=== PATIENT | male | born 1965 | race Caucasian/White ===

== ENCOUNTER → 2019-08-18 08:43 | Outpatient (CLI) | payer OTHER, SELFPAY ==
[2019-08-18 10:30] LABS: Vitamin D,25 Hydroxy 13.7 ng/mL (29.95-100.01)
[2019-08-18 10:48] LABS: Anion Gap 7 (5-15); BUN 12 mg/dL (7-18); BUN/Creat Ratio 10.2 RATIO (10-20); Chloride 106 mmol/L (98-107); Cholesterol 134 mg/dL (200); Creatinine, Serum 1.18 mg/dL (0.70-1.30); EST Glomerular Filtration Rate 69 mL/min (>60); Est Glom Filt Rate - Afr Amer 83 mL/min (>60); Glucose 98 mg/dL (74-106); High Density Lipoprotein 51 mg/dL; PSA,Total - Annual Screen 0.56 ng/mL (0.00-4.00); Potassium 4.1 mmol/L (3.5-5.1); Sodium Level 138 mmol/L (136-145); Thyroid Stim Hormone (TSH) 2.77 uIU/mL (0.358-3.74); Triglycerides 93 mg/dL; Very Low Density Lipoprotein 19 mg/dL (5-40)
== END ==
PROVIDERS: Visit Provider Family Medicine
DX: Z00.00 Encounter for general adult medical examination without abnormal findings (principal)
CPT/HCPCS: 36415; 80048; 80061; 82306; 84153; 84443; G0103

== ENCOUNTER → 2020-08-03 15:46 | Outpatient (CLI) | payer OTHER, SELFPAY | PROVIDERS: PCP Registered Nurse; Referring Provider Registered Nurse; Visit Provider Registered Nurse | DX: Z20.828 Contact with and (suspected) exposure to other viral communicable diseases (principal) | CPT/HCPCS: 87635; U0003 ==

== ENCOUNTER 2021-04-05 18:46 | Emergency (ER) | payer OTHER, SELFPAY ==
[2021-04-05 18:48] VITALS: BP 170/109; PULSE 85; RESP 16; TEMP 36.6; O2SAT 96; BMI 39.4
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
[2021-04-05] MEDS: traMADol 50 MG Tablet PO (20:53)
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
[2021-04-05] MEDS: Lidocaine 1% /Epi 1:100 (20ml) 20 ML Vial INFILT (23:51)
[2021-04-05 23:52] VITALS: BP 154/71; PULSE 78; RESP 16; O2SAT 98
== END 2021-04-05 23:53 | disposition home or self-care (01) ==
PROVIDERS: Emergency Provider Emergency Medicine; PCP Family Medicine
DX: S01.512A Laceration without foreign body of oral cavity, initial encounter (principal); S09.90XA Unspecified injury of head, initial encounter; X58.XXXA Exposure to other specified factors, initial encounter
CPT/HCPCS: 12013; 70100; 73140; 99283

== ENCOUNTER 2021-06-23 07:26 | Emergency (ER) | payer OTHER, SELFPAY ==
[2021-06-23 07:27] VITALS: BP 195/132; PULSE 75; RESP 18; TEMP 36.1; O2SAT 96; BMI 40.4
--- NOTE | 2021-06-23 07:29 | CT_ITS ---
EXAM: CT CERVICAL SPINE WITHOUT INTRAVENOUS CONTRAST : 1965 CLINICAL INDICATION: Trauma TECHNIQUE: Helically acquired images were obtained of the cervical spine without intravenous contrast. 2D reformatted images were reviewed. This CT exam was performed using one or more of the following dose reduction techniques: automated exposure control, adjustment of the mA and/or kV according to patient size, and/or use of iterative reconstruction technique. This report was created using [employer] report generation technology. COMPARISON: None. FINDINGS: VERTEBRAE: Mild anterior listhesis of C4 on C5 which appears related to the spondylosis. No fracture. No discrete lytic or blastic abnormality. Normal craniocervical junction and cervicothoracic junction. DISCS/SPINAL CANAL/NEURAL FORAMINA: Disc space narrowing and vertebral body spurring noted at C5-6 and C6-7. Multilevel facet arthropathy. Neural foraminal narrowing noted bilaterally at C5-6 and C6-7. SOFT TISSUES: Unremarkable. No prevertebral soft tissue swelling. LYMPH NODES: Unremarkable. No cervical adenopathy. LUNG APICES: Unremarkable as visualized. Clear. CT/Spine Cervical without Contras IMPRESSION: 1. No acute fracture or subluxation. 2. C5-6 and C6-7 spondylosis. Individualized dose optimization techniques were used for this CT. at 0813 Reported and signed by: Medhat Villa MD Electronically Signed: Medhat Villa MD at 8:12 EDT Tel , Service support ,
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
--- NOTE | 2021-06-23 07:42 | CT_ITS ---
EXAM: CT HEAD WITHOUT INTRAVENOUS CONTRAST : 1965 CLINICAL INDICATION: Trauma TECHNIQUE: Multiple axial images were obtained of the head without intravenous contrast. This CT exam was performed using one or more of the following dose reduction techniques: automated exposure control, adjustment of the mA and/or kV according to patient size, and/or use of iterative reconstruction technique. This report was created using [employer] report generation technology. COMPARISON: None. FINDINGS: BRAIN AND EXTRA-AXIAL SPACES: Unremarkable. No intra- or extra-axial hemorrhage. No evidence of acute infarct. No intracranial mass or mass effect. There is preservation of the pinedo/white matter interface. Posterior fossa structures are unremarkable. Ventricles are appropriate for age. No hydrocephalus. Basal cisterns are patent. BONES/JOINTS: Unremarkable. No discrete lytic or blastic abnormalities. SINUSES: Unremarkable as visualized. Clear. MASTOID AIR CELLS: Unremarkable. Clear. ORBITS: Visualized globes, extraocular muscles, optic nerves and retrobulbar fat appear unremarkable. CT/Brain/Head without Contrast IMPRESSION: No acute abnormality. Individualized dose optimization techniques were used for this CT. at 0811 Reported and signed by: Medhat Villa MD Electronically Signed: Medhat Villa MD at 8:10 EDT Tel , Service support ,
[2021-06-23 08:32] VITALS: BP 174/114; PULSE 76; RESP 16; O2SAT 97
== END 2021-06-23 08:33 | disposition home or self-care (01) ==
LOC: ED 08:20
PROVIDERS: Emergency Provider Emergency Medicine; PCP Family Medicine
DX: S16.1XXA Strain of muscle, fascia and tendon at neck level, initial encounter (principal); Y92.410 Unspecified street and highway as the place of occurrence of the external cause; V43.52XA Car driver injured in collision with other type car in traffic accident, initial encounter
CPT/HCPCS: 70450; 72125; 99284